=== PATIENT | male | born 1995 | race Caucasian/White ===

== ENCOUNTER 2018-03-29 01:08 | Observation (INO) | payer MEDICAID, OTHER ==
[~2018-03-29] VITALS: Ht 188 cm; Wt 82.0 kg
[2018-03-29] MEDS ORDERED: LORazepam 1MG TABLET ONE ×3 (01:28→20:31)
[2018-03-29] MEDS ORDERED: LORazepam 1MG TABLET PO ONE ×2 (01:30→03:00)
[2018-03-29 01:41] LABS: CULTURE INDICATED? NO; MICROSCOPIC NOT IND
[2018-03-29 01:42] LABS: ALANINE AMINOTRANSFERASE 33 U/L (12-78); ALBUMIN 3.9 g/dL (3.4-5.0); ANION GAP 7 mmol/L (5-15); CALCIUM 8.3 mg/dL (8.5-10.1); CHLORIDE 111 mmol/L (98-107); CREATININE 1.05 mg/dL (0.7-1.3); SALICYLATE LEVEL 2.4 mg/dL (2.8-20.0)
[2018-03-29 01:43] LABS: BASOPHILS # (AUTO) 0.02 x10^3/uL (0-0.1); BASOPHILS % (AUTO) 0 % (0-1); EOSINOPHILS # (AUTO) 0.19 x10^3/uL (0-0.4); EOSINOPHILS % (AUTO) 2 % (1-7); LYMPHOCYTES # (AUTO) 3.54 x10^3/uL (1-3.4); LYMPHOCYTES % (AUTO) 44 % (22-44); MD NO; MEAN CORPUSCULAR HEMOGLOBIN 28.6 pg (27.5-34.5); MEAN CORPUSCULAR HGB CONC 34.7 g/dL (33.2-36.2); MEAN CORPUSCULAR VOLUME 82.3 fL (81-97); MEAN PLATELET VOLUME 8.2 fL (7.4-10.4); MONOCYTES # (AUTO) 0.33 x10^3/uL (0.2-0.8); MONOCYTES % (AUTO) 4 % (2-9); NEUTROPHILS # (AUTO) 3.93 x10^3/uL (1.8-6.8); NEUTROPHILS % (AUTO) 49 % (42-75); PLATELET COUNT 220 x10^3/uL (130-400); RED BLOOD COUNT 5.14 x10^6/uL (4.38-5.82)
[2018-03-29 01:44] LABS: ALKALINE PHOSPHATASE 62 U/L (45-117); BILIRUBIN,TOTAL 0.2 mg/dL (0.2-1.0); TOTAL PROTEIN 7.3 g/dL (6.4-8.2)
[2018-03-29 01:48] LABS: ACETAMINOPHEN < 2 mcg/mL (10-30)
[2018-03-29 01:48] LABS: AMPHETAMINE SCREEN, URINE Negative (Negative); BARBITURATE SCREEN, URINE Negative (Negative); BENZODIAZEPINE SCREEN, URINE Negative (Negative); CANNABINOID SCREEN, URINE Negative (Negative); COCAINE SCREEN, URINE Positive (Negative); METHADONE SCREEN, URINE Negative (Negative); OPIATE SCREEN, URINE Negative (Negative)
[2018-03-29] MEDS ORDERED: ZIPRASIDONE 20MG CAPSULE PO ONE (03:00)
[2018-03-29] MEDS ORDERED: NICOTINE 14MG/24 HR PATCH.TD24 ONE (03:00)
[2018-03-29] MEDS ORDERED: NICOTINE 14MG/24 HR PATCH.TD24 TD ONE (03:00)
[2018-03-29] MEDS ORDERED: ZIPRASIDONE 20MG CAPSULE ONE (03:01)
[2018-03-29] MEDS ORDERED: LORazepam 2 MG/ML, 1ML ONE (04:21)
[2018-03-29] MEDS ORDERED: ZIPRASIDONE 20 MG INJ IM ONE ×2 (04:21→04:30)
[2018-03-29] MEDS ORDERED: LORazepam 2 MG/ML, 1ML IM ONE (04:30)
[2018-03-29] MEDS ORDERED: ACETAMINOPHEN 325 MG TABLET PO PRN (16:30)
[2018-03-29] MEDS ORDERED: ONDANSETRON ODT 4 MG PO PRN (16:30)
[2018-03-29] MEDS ORDERED: DOCUSATE 100 MG CAPSULE PO PRN (16:30)
[2018-03-29] MEDS ORDERED: BISACODYL 10 MG SUPP PR PRN (16:30)
[2018-03-29] MEDS ORDERED: POLYETHYLENE GLYCOL 17 GM PACKET PO PRN (16:30)
[2018-03-29] MEDS ORDERED: LORazepam 2 MG/ML, 1ML IM PRN (16:30)
[2018-03-29] MEDS ORDERED: ZIPRASIDONE 20 MG INJ IM PRN (16:30)
[2018-03-29] MEDS ORDERED: NICOTINE 21 MG/24 HR PATCH.TD24 ONE (16:36)
[2018-03-29] MEDS: NICOTINE 21 MG/24 HR PATCH.TD24 TD SCH (16:38)
[2018-03-29] MEDS: LORazepam 1MG TABLET PO PRN (20:33)
[2018-03-30 06:08] VITALS: BP 137/90
[2018-03-30] MEDS: NICOTINE 21 MG/24 HR PATCH.TD24 TD SCH (14:24)
[2018-03-30] MEDS: IBUPROFEN 600 MG TABLET PO PRN (16:00)
[2018-03-30 19:13] VITALS: BP 143/84
[2018-03-30] MEDS ORDERED: LORazepam 1MG TABLET ONE (20:51)
[2018-03-30] MEDS: LORazepam 1MG TABLET PO PRN (20:52)
[2018-03-31 09:14] VITALS: BP 126/75
[2018-03-31] MEDS: IBUPROFEN 600 MG TABLET PO PRN (10:43)
[2018-03-31] MEDS: LORazepam 1MG TABLET PO PRN ×2 (13:54→21:28)
[2018-03-31] MEDS: NICOTINE 21 MG/24 HR PATCH.TD24 TD SCH (13:54)
[2018-03-31 20:01] VITALS: BP 135/77
[2018-03-31] MEDS: ZIPRASIDONE 20MG CAPSULE PO PRN (20:13)
[2018-04-01 07:47] VITALS: BP 125/80
[2018-04-01] MEDS: LORazepam 1MG TABLET PO PRN ×3 (10:42→20:52)
[2018-04-01] MEDS: NICOTINE 21 MG/24 HR PATCH.TD24 TD SCH (13:31)
[2018-04-01] MEDS: IBUPROFEN 600 MG TABLET PO PRN (16:08)
[2018-04-01 19:28] VITALS: BP 130/84
[2018-04-02 08:02] VITALS: BP 126/66
[2018-04-02] MEDS: NICOTINE 21 MG/24 HR PATCH.TD24 TD SCH (14:50)
[2018-04-02] MEDS: ZIPRASIDONE 20MG CAPSULE PO PRN (17:25)
[2018-04-02 19:34] VITALS: BP 132/81
[2018-04-03 08:07] VITALS: BP 117/71
[2018-04-03] MEDS: ZIPRASIDONE 20MG CAPSULE PO PRN (08:38)
[2018-04-03] MEDS: NICOTINE 21 MG/24 HR PATCH.TD24 TD SCH (15:23)
[2018-04-03] MEDS: LORazepam 1MG TABLET PO PRN ×2 (15:23→20:59)
[2018-04-03 19:26] VITALS: BP 132/82
[2018-04-04 07:46] VITALS: BP 114/70
[2018-04-04] MEDS: NICOTINE 21 MG/24 HR PATCH.TD24 TD SCH (15:31)
[2018-04-04] MEDS: ZIPRASIDONE 20MG CAPSULE PO PRN ×2 (15:37→20:17)
[2018-04-04 19:29] VITALS: BP 117/73
[2018-04-05 08:36] VITALS: BP 99/65
[2018-04-05] MEDS: LORazepam 1MG TABLET PO PRN ×2 (10:54→17:05)
[2018-04-05] MEDS: ZIPRASIDONE 20MG CAPSULE PO PRN ×2 (13:40→19:40)
[2018-04-05] MEDS: NICOTINE 21 MG/24 HR PATCH.TD24 TD SCH (15:02)
[2018-04-05 19:31] VITALS: BP 129/79
[2018-04-06 08:00] VITALS: BP 122/76
[2018-04-06] MEDS: ZIPRASIDONE 20MG CAPSULE PO PRN ×2 (08:30→20:22)
[2018-04-06] MEDS: NICOTINE 21 MG/24 HR PATCH.TD24 TD SCH (15:06)
[2018-04-06 19:47] VITALS: BP 125/77
[2018-04-07 08:18] VITALS: BP_SYST 128
== END 2018-04-07 11:30 | disposition home or self-care (01) ==
LOC: ED 03:10 → EDIP 15:40 → 2N 03-30 06:05
PROVIDERS: ADMIT Family Medicine; ATTEND Family Medicine
DX: T14.91XA Suicide attempt, initial encounter (principal); F10.129 Alcohol abuse with intoxication, unspecified; F14.10 Cocaine abuse, uncomplicated; F17.210 Nicotine dependence, cigarettes, uncomplicated; F23 Brief psychotic disorder; F32.9 Major depressive disorder, single episode, unspecified; G89.29 Other chronic pain; I10 Essential (primary) hypertension; X83.8XXA Intentional self-harm by other specified means, initial encounter; Y93.89 Activity, other specified; Y92.092 Bedroom in other non-institutional residence as the place of occurrence of the external cause; Y99.8 Other external cause status; Z91.5 Personal history of self-harm
CPT/HCPCS: 36415; 80053; 80307; 80329; 81003; 85025; 96372; 99285; G0378; J2060; J3486; G0480